=== PATIENT | male | born 1965 | race Caucasian/White ===

== ENCOUNTER 2019-12-22 21:00 | Emergency (ER) | payer BC ==
[2019-12-22 21:05] VITALS: TEMP 98.4; BMI 27.8
--- NOTE | 2019-12-22 23:29 | PDOC ---
History of Present Illness - General Chief Complaint: Pain Stated Complaint: LS ABD PAIN - History of Present Illness Initial Comments: 12/22/19 23:29 54yo M w/ h/o kidney stones p/w LLQ and flank pain. He reports that yesterday he started to feel this pain when he was in bed. It is constant and achy in nature. It is made worse by moving around and getting up. He has not taken anything for it. He denies hematuria, discharge, pain w urination. He is sexually active but does not think he has an infection. He has a h/o kidney stones but reports this does not feel exactly like his past episode. He reports constipation but denies diarrhea, blood in his stool. He denies recent illness, fever, cough, rash, sore throat, travel. He denies any ABD surgery. PMH of HTN 12/24/19 11:54 Past History - Travel History Traveled outside of the country in the last 30 days: No Close contact w/someone who was outside of country & ill: No - Medical History Allergies/Adverse Reactions: Allergies Allergy/AdvReac Type Severity Reaction Status Date / Time No Known Allergies Allergy Verified 12/22/19 23:50 Home Medications: Ambulatory Orders Aspirin 81 mg PO DAILY 12/22/19 Atorvastatin Ca [Lipitor] 10 mg PO HS 12/22/19 Carvedilol [Coreg -] 3.125 mg PO BID 12/22/19 Enalapril Maleate 2.5 mg PO DAILY 12/22/19 COPD: No HTN: Yes - Surgical History Abdominal Surgery: No Appendectomy: No Cardiac Surgery: No Cholecystectomy: No Gastric Stapling: No GI Surgery: No Lung Surgery: No Neurologic Surgery: No - Psycho-Social/Smoking History Smoking Status: No Smoking History: Never smoked Have you smoked in the past 12 months: No - Substance Abuse Hx (Audit-C & DAST Scrn) How often the patient has a drink containing alcohol: Never Score: In Men: 4 or > Positive; In Women: 3 or > Positive: 0 Screen Result (Pos requires Nsg. Audit-10AR): Negative Review of Systems - Review of Systems Able to Perform ROS?: Yes Is the patient limited Scottish proficient: Yes Constitutional: No: Chills, Diaphoresis, Fever HEENTM: No: Blurred Vision, Nose Congestion, Throat Pain Respiratory: No: Cough, Shortness of Breath, SOB with Exertion Cardiac (ROS): No: Chest Pain, Edema, Lightheadedness, Palpitations, Syncope ABD/GI: No: Abd. Pain w/ defecation, Blood Streaked Bowels, Constipated, Diarrhea, Nausea, Vomiting : No: Burning, Dysuria, Discharge, Hematuria, Testicular Swelling, Lesions, Testicular Pain Musculoskeletal: Yes: Back Pain Integumentary: No: Rash Neurological: No: Headache, Numbness, Paresthesia, Weakness, Dizziness Psychiatric: No: Change in Appetite *Physical Exam - Vital Signs Last Vital Signs Temp Pulse Resp BP Pulse Ox 98.4 F 68 19 149/92 97 12/22/19 21:02 12/22/19 21:02 12/22/19 21:02 12/22/19 21:02 12/22/19 21:02 - Physical Exam General Appearance: Yes: Nourished, Appropriately Dressed HEENT: positive: EOMI, PASCALE. negative: Nasal Congestion, Rhinorrhea Neck: positive: Trachea midline, Supple. negative: Tender Respiratory/Chest: positive: Lungs Clear, Normal Breath Sounds. negative: Respiratory Distress Cardiovascular: positive: Regular Rhythm, Regular Rate, S1, S2 Gastrointestinal/Abdominal: positive: Normal Bowel Sounds, Soft, Tenderness (LLQ), Other (no CVA tenderness, LLQ tenderness on deep palpation). negative: Pulsatile Mass Musculoskeletal: negative: CVA Tenderness, CVA Tenderness (R), CVA Tenderness (L) Extremity: positive: Normal Capillary Refill. negative: Tender Integumentary: positive: Normal Color, Dry, Warm. negative: Diaphoresis, Moist Neurologic: positive: Fully Oriented, Alert, Motor Strength 5/5 ED Treatment Course - LABORATORY CBC & Chemistry Diagram: 12/22/19 23:38 12/22/19 23:38 Discharge - Discharge Information Problems reviewed: Yes Clinical Impression/Diagnosis: Suprapubic pain Condition: Stable Disposition: HOME - Follow up/Referral Referrals: Gennaro Greenwood MD [Staff Physician] - Ray Ho DO [Staff Physician] - Juan David Patel [Staff Physician] - Aston Mantilla MD [Staff Physician] - - Patient Discharge Instructions Patient Printed Discharge Instructions: DI for Abdominal Pain-Adult Additional Instructions: Le castillo visto en el departamento de emergencias por valentine dolor abdominal. Valentine tomografa computarizada y los laboratorios no muestran signos de gena afeccin emergente, oswald un clculo renal o gena infeccin. La causa de rashad sntomas es desconocida en johnson momento. Necesita gena evaluacin adicional para hacer un diagnstico definitivo y recibir la mejor gestin en el futuro. Le hemos dado mltiples referencias a mdicos GI (gastrointestinales): llame a adebayo de rashad consultorios para programar gena herb de seguimiento dentro de 1 semana. Angeulogio dixon un seguimiento con valentine mdico de atencin primaria dentro de 1 semana. Regrese al servicio de urgencias de inmediato si experimenta un dolor abdominal que empeora, incapacidad para orinar, vmitos, fiebre, diarrea o cualquier otro sntoma nuevo o que empeora. You have been seen in the Emergency Department for your abdominal pain. Your CT scan and labs show no signs concerning for an emergent condition such as a kidney stone or infection. The cause of your symptoms is unknown at this time. You need further evaluation to make a definitive diagnosis and to receive the best management going forward. We have given you multiple referrals to GI (gastrointestinal) doctors - call one of their offices to make a follow-up appointment for within 1 week. Also follow-up with your primary care doctor within 1 week. Return to the ED immediately if you experience worsening abdominal pain, inability to urinate, vomiting, fever, diarrhea, or any other new or worsening symptom. - Post Discharge Activity
[2019-12-22 23:45] LABS: HEMATOCRIT 42.8 % (35.4-49); HEMOGLOBIN 14.4 GM/dL (11.7-16.9); MCHC 33.5 g/dl (32.0-35.9); MEAN CELL VOLUME 92.3 fl (80-96); MEAN PLT VOLUME 7.5 fl (7.5-11.1); PLATELET COUNT 254 K/MM3 (134-434); RBC 4.64 M/mm3 (4.00-5.60); RDW 12.7 % (11.9-15.9); WHITE BLOOD COUNT 7.9 K/mm3 (4.0-10.0)
--- NOTE | 2019-12-22 23:57 | PDOC ---
*Physical Exam - Vital Signs Last Vital Signs Temp Pulse Resp BP Pulse Ox 98.4 F 68 19 149/92 97 12/22/19 21:02 12/22/19 21:02 12/22/19 21:02 12/22/19 21:02 12/22/19 21:02 ED Treatment Course - LABORATORY CBC & Chemistry Diagram: 12/22/19 23:38 12/22/19 23:38 Medical Decision Making - Medical Decision Making 12/22/19 23:54 54yo M hx HTN and HLD presents from home with LLQ/flank pain x2 days started when woke up sudden onset only occurs with movement and with urination. Endorses constipation LBM today, no hx abdominal surgeries. PE notable for suprapubic and LLQ ttp, no cva tenderness, no peritoneal signs Ddx kidney stone vs UTI vs diverticulitis Labs, urine reviewed: no concerning findings CTAP noncontrast reviewed: no acute pathology Pain improved. Safe for d/c. 12/23/19 01:54 Will discharge home with PCP and GI f/u. Return precautions given. Pt understa nds all discharge instructions and all questions were answered. Discharge - Discharge Information Problems reviewed: Yes Clinical Impression/Diagnosis: Suprapubic pain Condition: Stable Disposition: HOME - Admission No - Follow up/Referral Referrals: Ray Ho DO [Staff Physician] - Gennaro Greenwood MD [Staff Physician] - Juan David Patel [Staff Physician] - Aston Mantilla MD [Staff Physician] - - Patient Discharge Instructions Patient Printed Discharge Instructions: DI for Abdominal Pain-Adult Additional Instructions: Le castillo visto en el departamento de emergencias por valentine dolor abdominal. Valentine tomografa computarizada y los laboratorios no muestran signos de gena afeccin emergente, oswald un clculo renal o gena infeccin. La causa de rashad sntomas es desconocida en johnson momento. Necesita gena evaluacin adicional para hacer un diagnstico definitivo y recibir la mejor gestin en el futuro. Le hemos dado mltiples referencias a mdicos GI (gastrointestinales): llame a adebayo de rashad consultorios para programar gena herb de seguimiento dentro de 1 semana. Tamie dixon un seguimiento con valentine mdico de at encin primaria dentro de 1 semana. Regrese al servicio de urgencias de inmediato si experimenta un dolor abdominal que empeora, incapacidad para orinar, vmitos, fiebre, diarrea o cualquier otro sntoma nuevo o que empeora. You have been seen in the Emergency Department for your abdominal pain. Your CT scan and labs show no signs concerning for an emergent condition such as a kidney stone or infection. The cause of your symptoms is unknown at this time. You need further evaluation to make a definitive diagnosis and to receive the best management going forward. We have given you multiple referrals to GI (gastrointestinal) doctors - call one of their offices to make a follow-up appointment for within 1 week. Also follow-up with your primary care doctor within 1 week. Return to the ED immediately if you experience worsening abdominal pain, inability to urinate, vomiting, fever, diarrhea, or any other new or worsening symptom. - Post Discharge Activity
--- NOTE | 2019-12-23 | PDOC ---
Attending Attestation - Resident Resident Name: Ezra Robles - ED Attending Attestation I have performed the following: I have examined & evaluated the patient, The case was reviewed & discussed with the resident, I agree w/resident's findings & plan, Exceptions are as noted - HPI HPI: 12/23/19 05:13 54M pmh HTN, HLD, no surgical hx, here with L sided flank pain, radiating to groin. Episodic with periods pain free, resolves spontaneously, triggered by movement and urination No bm today, +passing gas - Physicial Exam PE: 12/23/19 05:15 NAD, AOx3 Abd soft, +suprapubic tenderness, nd, ng, no rebound, no masses NO cvat - Medical Decision Making 12/23/19 05:16 nephrolithiasis? cystitis? complicated gu infection? less likely diverticulitis f/u labs, non-con ct dispo per clinical course Discharge - Discharge Information Problems reviewed: Yes Clinical Impression/Diagnosis: Suprapubic pain Condition: Stable Disposition: HOME - Follow up/Referral Referrals: Gennaro Greenwood MD [Staff Physician] - Ray Ho DO [Staff Physician] - Juan David Patel [Staff Physician] - Aston Mantilla MD [Staff Physician] - - Patient Discharge Instructions Patient Printed Discharge Instructions: DI for Abdominal Pain-Adult Additional Instructions: Le castillo visto en el departamento de emergencias por valentine dolor abdominal. Valentine tomografa computarizada y los laboratorios no muestran signos de gena afeccin emergente, oswald un clculo renal o gena infeccin. La causa de rashad sntomas es desconocida en johnson momento. Necesita gena evaluacin adicional para hacer un diagnstico definitivo y recibir la mejor gestin en el futuro. Le hemos dado mltiples referencias a mdicos GI (gastrointestinales): llame a adebayo de rashad consultorios para programar gena herb de seguimiento dentro de 1 semana. Tambin dixon un seguimiento con valentine mdico de atencin primaria dentro de 1 semana. Regrese al servicio de urgencias de inmediato si experimenta un dolor abdominal que empeora, incapacidad para orinar, vmitos, fiebre, diarrea o cualquier otro sntoma nuevo o que empeora. You have been seen in the Emergency Department for your abdominal pain. Your CT scan and labs show no signs concerning for an emergent condition such as a kidney stone or infection. The cause of your symptoms is unknown at this time. You need further evaluation to make a definitive diagnosis and to receive the best management going forward. We have given you multiple referrals to GI (gastrointestinal) doctors - call one of their offices to make a follow-up appointment for within 1 week. Also follow-up with your primary care doctor within 1 week. Return to the ED immediately if you experience worsening abdominal pain, inability to urinate, vomiting, fever, diarrhea, or any other new or worsening symptom. - Post Discharge Activity
[2019-12-23 00:18] LABS: ALBUMIN 4.1 g/dl (3.4-5.0); BILIRUBIN,TOTAL 0.3 mg/dL (0.2-1); BLOOD UREA NITROGEN 19.2 mg/dL (7-18); CALCIUM 9.3 mg/dL (8.5-10.1); CREATININE 1.2 mg/dL (0.55-1.3); POTASSIUM 4.7 mmol/L (3.5-5.1); TOT PROT 7.2 g/dl (6.4-8.2)
[2019-12-23 00:20] LABS: URINE APPEARANCE CLEAR; URINE BILIRUBIN NEGATIVE (NEGATIVE); URINE COLOR DK YELLOW; URINE GLUCOSE (UA) NEGATIVE (NEGATIVE); URINE KETONE NEGATIVE (NEGATIVE); URINE LEUK ESTERASE NEGATIVE (NEGATIVE); URINE NITRITE NEGATIVE (NEGATIVE); URINE PROTEIN NEGATIVE (NEGATIVE); URINE UROBILINOGEN 0.2 mg/dL (0.2-1.0)
[2019-12-23] MEDS ORDERED: SODIUM CHLORIDE 0.9% 500 ML INFUS.BAG IV ONE (00:24)
[2019-12-23 02:02] VITALS: BP 135/87; PULSE 88
== END 2019-12-23 02:02 | disposition home or self-care (01) ==
LOC: JER 21:00
DX: R10.30 Lower abdominal pain, unspecified (principal)
CPT/HCPCS: 36415; 74176-TC; 80053; 81003; 85027; 99284-25

== ENCOUNTER 2020-10-27 15:55 | Emergency (ER) | payer BC, OTHER ==
[2020-10-27 16:02] VITALS: BP 134/82; PULSE 76; TEMP 97.9; BMI 27.8
[2020-10-27] MEDS ORDERED: CYCLOBENZAPRINE HCL 10 MG TABLET (FP) PO ONE ×2 (16:27→16:38)
[2020-10-27] MEDS ORDERED: KETOROLAC TROMETHAMINE 30 MG/1 ML VIAL IM ONE (16:27)
[2020-10-27] MEDS ORDERED: CYCLOBENZAPRINE HCL 10 MG TABLET (FP) ONE (16:38)
[2020-10-27] MEDS ORDERED: KETOROLAC TROMETHAMINE 30 MG/1 ML VIAL ONE (16:38)
[2020-10-27] MEDS ORDERED: LIDOCAINE 5% TOPICAL PATCH TP ONE (17:08)
[2020-10-27] MEDS ORDERED: LIDOCAINE 5% TOPICAL PATCH ONE (17:12)
[2020-10-27 17:25] LABS: EPI CELLS 6 /uL (0-25.1); HYALINE CASTS 1 /uL (0-3.1); PH,URINE 5.5 (5.0-8.0); URINE APPEARANCE CLEAR; URINE BACTERIA 8 /uL (0-1359); URINE BILIRUBIN NEGATIVE (NEGATIVE); URINE COLOR YELLOW; URINE GLUCOSE (UA) NEGATIVE (NEGATIVE); URINE KETONE NEGATIVE (NEGATIVE); URINE LEUK ESTERASE NEGATIVE (NEGATIVE); URINE NITRITE NEGATIVE (NEGATIVE); URINE PROTEIN 1+ (NEGATIVE); URINE RBC 7 /uL (0-23.9); URINE WBC 10 /uL (0-25.8)
[2020-10-28] MEDS ORDERED: LIDOCAINE PATCH REMOVAL MC ONE (05:00)
== END 2020-10-27 18:12 | disposition home or self-care (01) ==
LOC: JERFT 15:55
PROC: 3E0233Z Introduction of Anti-inflammatory into Muscle, Percutaneous Approach (ICD-10-PCS; principal; 2020-10-27)
DX: M54.42 Lumbago with sciatica, left side (principal)
CPT/HCPCS: 81003; 87086; 99284-25

== ENCOUNTER 2021-03-21 08:22 | Emergency (ER) | payer BC, OTHER ==
[2021-03-21 08:27] VITALS: TEMP 97.9; BMI 25.7
[2021-03-21] MEDS ORDERED: diazePAM 5 MG TABLET PO ONE (09:39)
[2021-03-21] MEDS ORDERED: KETOROLAC TROMETHAMINE 30 MG/1 ML VIAL IM ONE (09:39)
[2021-03-21] MEDS ORDERED: diazePAM 5 MG TABLET ONE (09:53)
[2021-03-21] MEDS ORDERED: KETOROLAC TROMETHAMINE 30 MG/1 ML VIAL ONE (09:54)
[2021-03-21 11:53] VITALS: BP 142/97; PULSE 84
== END 2021-03-21 11:50 | disposition home or self-care (01) ==
LOC: JER 08:22
PROC: 3E0233Z Introduction of Anti-inflammatory into Muscle, Percutaneous Approach (ICD-10-PCS; principal; 2021-03-21)
DX: M54.32 Sciatica, left side (principal)
CPT/HCPCS: 99284-25

== ENCOUNTER 2023-04-24 18:36 | Emergency (ER) | payer BC ==
[2023-04-24 18:40] VITALS: BMI 27.1
[2023-04-24 19:34] LABS: PH,URINE 6.5 (5.0-8.0); URINE APPEARANCE CLEAR; URINE BILIRUBIN NEGATIVE (NEGATIVE); URINE COLOR YELLOW; URINE GLUCOSE (UA) NEGATIVE (NEGATIVE); URINE KETONE NEGATIVE (NEGATIVE); URINE LEUK ESTERASE NEGATIVE (NEGATIVE); URINE NITRITE NEGATIVE (NEGATIVE); URINE PROTEIN NEGATIVE (NEGATIVE); URINE UROBILINOGEN 0.2 mg/dL (0.2-1.0)
[2023-04-24 21:54] VITALS: BP 110/68; PULSE 72; RESP 19; TEMP 97.9
== END 2023-04-24 21:55 | disposition home or self-care (01) ==
LOC: JER 18:36
DX: R30.0 Dysuria (principal); N50.82 Scrotal pain; N50.811 Right testicular pain; N50.812 Left testicular pain
CPT/HCPCS: 76856-TC; 81003; 87086; 99284-25

== ENCOUNTER 2024-11-03 19:46 | Emergency (ER) | payer BC, OTHER ==
[2024-11-03 19:53] VITALS: TEMP 97.5; BMI 27.8
[2024-11-03] MEDS ORDERED: KETOROLAC TROMETHAMINE 15 MG/ML VIAL ONE (20:38)
[2024-11-03] MEDS: SODIUM CHLORIDE 0.9% 500 ML INFUS.BAG IV ONE (20:53)
[2024-11-03] MEDS: KETOROLAC TROMETHAMINE 15 MG/ML VIAL IVPUSH ONE (20:53)
[2024-11-03 21:07] LABS: ABSOLUTE IMMATURE GRANULOCYTES 0.03 x10^3/uL (0.0-0.031); BASOPHILS # 0.03 x10^3/uL (0.01-0.08); EOSINOPHIL % 0.9 % (0.8-7.0); HEMATOCRIT 42.2 % (40.1-51.0); HEMOGLOBIN 13.8 g/dL (13.7-17.5); MCHC 32.7 g/dl (32.3-36.5); MEAN PLT VOLUME 9.1 fl (9.4-12.4); MONOCYTE # 1.33 x10^3/uL (0.30-0.82); PLATELET COUNT 228 x10^3/uL (163-337); RDW 12.1 % (12.2-16.1)
[2024-11-03 21:10] LABS: PH,URINE 5.5 (5.0-8.0); URINE APPEARANCE CLEAR; URINE BILIRUBIN NEGATIVE (NEGATIVE); URINE COLOR YELLOW; URINE GLUCOSE (UA) NEGATIVE (NEGATIVE); URINE KETONE TRACE (NEGATIVE); URINE LEUK ESTERASE NEGATIVE (NEGATIVE); URINE NITRITE NEGATIVE (NEGATIVE); URINE PROTEIN NEGATIVE (NEGATIVE); URINE UROBILINOGEN 0.2 mg/dL (0.2-1.0)
[2024-11-03 21:14] LABS: INR 1.28 (0.83-1.09); PROTHROMBIN TIME (PATIENT) 14.1 SEC (9.7-13.0)
[2024-11-03 21:17] LABS: ACTIVATED PTT 31.6 SECONDS (25.2-36.5)
[2024-11-03 21:24] LABS: POTASSIUM 3.9 mmol/L (3.5-5.1)
[2024-11-03 21:26] LABS: ALBUMIN 4.2 g/dl (3.4-5.0); CALCIUM 9.5 mg/dL (8.5-10.1)
[2024-11-03 21:27] LABS: BLOOD UREA NITROGEN 20.7 mg/dL (7-18)
[2024-11-03 21:30] LABS: CREATININE 1.8 mg/dL (0.55-1.3)
[2024-11-03 21:31] LABS: BILIRUBIN,TOTAL 0.7 mg/dL (0.2-1); TOT PROT 7.2 g/dl (6.4-8.2)
[2024-11-04 00:13] VITALS: BP 133/71; PULSE 88; RESP 16
== END 2024-11-04 00:14 | disposition home or self-care (01) ==
LOC: JER 19:46
PROC: 3E0333Z Introduction of Anti-inflammatory into Peripheral Vein, Percutaneous Approach (ICD-10-PCS; principal; 2024-11-03)
DX: N13.2 Hydronephrosis with renal and ureteral calculous obstruction (principal); R10.31 Right lower quadrant pain; R11.0 Nausea
CPT/HCPCS: 36415; 74176-TC; 80053; 81003; 83690; 83735; 85025; 85610; 85730; 87086; 99285-25